=== PATIENT | male | born 1960 | race Caucasian/White ===

== ENCOUNTER 2016-10-02 08:03 | Inpatient (IN) | payer OTHER ==
[~2016-10-02] VITALS: Ht 167.6 cm; Wt 90.7 kg
[2016-10-02 08:06] VITALS: BP 167/105
--- NOTE | 2016-10-02 08:10 | NUR ---
56/M BIB C/O VOMITING AND ABDOMINAL PAIN SINCE LAST NOC. HX HTN, HYPERLIPIDEMIA, GOUT. SKIN IS PINK/WARM/DRY; AAOX4 WITH EVEN AND STEADY GAIT; LUNGS CLEAR BL; HR EVEN AND REGULAR; PT DENIES ANY FEVER, CP, SOB, OR COUGH AT THIS TIME; PATIENT STATES PAIN OF 10/10 AT THIS TIME; VSS; PATIENT POSITIONED FOR COMFORT; HOB ELEVATED; BEDRAILS UP X2; BED DOWN. ER MD MADE AWARE OF PT STATUS.
--- NOTE | 2016-10-02 08:15 | NUR ---
ER MD DR NAIK EVALUATING PT AT BEDSIDE.
[2016-10-02] MEDS ORDERED: NACL 0.9% 1,000 ML IV SCH (08:19)
[2016-10-02] MEDS ORDERED: MORPHINE SULFATE 4 MG/ML SYR IVP ONE ×2 (08:20→10:40)
[2016-10-02] MEDS ORDERED: ONDANSETRON 4 MG/2 ML VIAL IVP ONE (08:20)
--- NOTE | 2016-10-02 08:45 | NUR ---
X RAY AT BEDSIDE
[2016-10-02] MEDS ORDERED: DILT120C10 PO (08:56)
[2016-10-02] MEDS ORDERED: LOSA50TA39 PO (08:56)
[2016-10-02] MEDS ORDERED: METO25TE2 PO (08:56)
[2016-10-02] MEDS ORDERED: ATOR20TA PO (08:56)
[2016-10-02] MEDS ORDERED: KETO10TA2 PO (08:56)
--- NOTE | 2016-10-02 09:00 | NUR ---
Patient appears to be resting comfortably in bed. Vital Signs within normal limits. Respirations even and unlabored.WILL CONTINUE TO MONITOR
[2016-10-02 09:04] LABS: BASOPHILS # (AUTO) 0.1 K/uL (0.00-0.22); BASOPHILS % (AUTO) 1.1 % (0.0-2.0); EOSINOPHILS # (AUTO) 0.2 K/uL (0-0.4); HEMATOCRIT 47.5 % (36-52); HEMOGLOBIN 15.4 g/dL (12.0-18.0); LYMPHOCYTES # (AUTO) 0.4 K/uL (2.0-11.5); LYMPHOCYTES % (AUTO) 4.6 % (20.5-51.1); MEAN CORPUSCULAR HEMOGLOBIN 28 pg (27-31); MEAN CORPUSCULAR HGB CONC 33 g/dL (33-37); MEAN CORPUSCULAR VOLUME 87 fL (80-94); MONOCYTES # (AUTO) 0.3 K/uL (0.8-1.0); NEUTROPHILS # (AUTO) 8.4 K/uL (1.8-7.7); NEUTROPHILS % (AUTO) 89.3 % (42.2-75.2); PLATELET COUNT (AUTO) 194 K/uL (140-450); RED BLOOD CELL COUNT(AUTO) 5.46 MIL/uL (4.20-6.10); RED CELL DISTRIBUTION WIDTH 13.8 % (11.6-13.7)
[2016-10-02 09:14] LABS: ANION GAP 14.1 (8-16); CALCIUM 9.6 mg/dL (8.5-10.1); CARBON DIOXIDE 30.1 mmol/L (21-32); POTASSIUM 3.2 mmol/L (3.5-5.1)
[2016-10-02 09:17] LABS: WHITE BLOOD COUNT (AUTO) 9.4 K/uL (4.8-10.8)
[2016-10-02 09:19] LABS: ALBUMIN 4.5 g/dL (3.4-5.0); TOTAL PROTEIN, SERUM 8.3 g/dL (6.4-8.2)
--- NOTE | 2016-10-02 09:32 | NUR ---
Patient taken to CT scan via gurney by [facility].
--- NOTE | 2016-10-02 10:26 | NUR ---
Martina ford in ED - 10/02/16 at 1134 by MED1 PIT C/O ABD PAIN 02/07; BP 163/120; NO HEADACHE OR DIZZY; NOTIFIED ER MD DR NAIK. AWARE
--- NOTE | 2016-10-02 10:26 | NUR ---
PT C/O ABD PAIN 02/07; BP 163/120; NO HEADACHE OR DIZZY; NOTIFIED ER MD DR NAIK. AWARE
[2016-10-02] MEDS ORDERED: ASPIRIN 325 MG TAB PO ONE (10:40)
[2016-10-02] MEDS ORDERED: NACL 0.9% 1,000 ML IV ONE (10:40)
[2016-10-02 10:44] LABS: APPEARANCE,URINE SL CLOUDY (CLEAR); BILIRUBIN,URINE NEGATIVE (NEGATIVE); BLOOD, URINE 2+ (NEGATIVE); COLOR,URINE YELLOW (YELLOW); LEUKOCYTE ESTERASE ,URINE NEGATIVE (NEGATIVE); NITRITE, URINE NEGATIVE (NEGATIVE); PROTEIN,URINE 1+ (NEGATIVE); UGLUCOSE NEGATIVE (NEGATIVE); UROBILINOGEN,URINE 0.2 EU/dL (0.2 - 1)
--- NOTE | 2016-10-02 10:44 | NUR ---
Dr. Cardenas evaluating patient at bedside.
[2016-10-02 10:56] LABS: BACTERIA,URINE 1+ /HPF (None Seen); RBC,URINE 11-20 (MOD) /HPF (0-5); SQUAMOUS EPITHELIAL CELL,UR None Seen /LPF (0-3 (FEW)); WBC,URINE 0-5 (RARE) /HPF (0-5)
[2016-10-02] MEDS ORDERED: ONDANSETRON 4 MG/2 ML VIAL IM/IVP PRN (11:10)
[2016-10-02] MEDS ORDERED: HYDROcodone/APAP 7.5/325 MG 1 TAB PO PRN (11:10)
[2016-10-02] MEDS ORDERED: ACETAMINOPHEN 325 MG TAB PO PRN (11:10)
[2016-10-02] MEDS ORDERED: DOCUSATE SODIUM 100 MG GELCAP PO PRN (11:10)
[2016-10-02] MEDS ORDERED: MORPHINE SULFATE 2 MG/ML SYR IVP PRN (11:10)
--- NOTE | 2016-10-02 11:33 | NUR ---
CALLED TO GIVE REPORT TO MARTHA TAVERAS; RN STATED TO CALL HER BACK IN 5 MINS.
[2016-10-02 11:39] LABS: INR 1.1 (0.8-1.2); PARTIAL THROMBOPLASTIN TIME 24.8 secs (22-35.6); PROTHROMBIN TIME 10.4 secs (10.8-13.4)
[2016-10-02] MEDS: NACL 0.9% 1,000 ML IV SCH ×2 (11:41→12:47)
[2016-10-02 11:51] LABS: CHOL/HDL RATIO 4.4 (1-4.5); FREE T4 (FREE THYROXINE) 0.84 ng/dL (0.76-1.46); MAGNESIUM 2.1 mg/dL (1.8-2.4); PHOSPHORUS 2.1 mg/dL (2.5-4.9); THYROID STIMULATING HORMONE 0.65 uIU/mL (0.34-3.76)
--- NOTE | 2016-10-02 12:05 | NUR ---
RECEIVED PATIENT FROM ER, RECEIVED REPORT FROM GLORY RN, PT AWAKE AND ALERT, NO SIGNS OF ACUTE DISTRESS. BREATHING EVEN AND UNLABORED BILATERALLY ON ROOM AIR. NG TUBE IN RT NARE ON LOW INTERMITTENT SUCTION, BOWEL SOUNDS ACTIVE IN ALL 4 QUADRANTS WITH BOWEL AND BLADDER CONTINENCE, PATIENT C/O PAIN 2/10 IN ABDOMEN HOWEVER JUST RECEIVED MORPHINE IN ER AND DOES NOT WANT PAIN MEDICATION AT THIS TIME, AMBULATORY WITH BRP, SKIN INTACT, ORIENTED PATIENT TO HOSPITAL AND TO UNIT, PT VERBALIZED UNDERSTANDING, BED IN LOW POSITION WITH BILATERAL HALF SIDE RAILS UP, CALL LIGHT WITHIN REACH.
--- NOTE | 2016-10-02 12:10 | NUR ---
PT VOMITED APPROXIMATELY 50ML, BROWN-YELLOW IN COLOR.
--- NOTE | 2016-10-02 12:13 | NUR ---
PATIENT TRANSPORTED TO ROOM VIA GURNEY IN STABLE CONDITION WITH ALL BELONGINGS ACCOMPANIED BY STAFF AND FAMILY.
--- NOTE | 2016-10-02 12:30 | NUR ---
NOTIFIED DR GIORDANO OF PATIENT VOMITING, NO NEW ORDERS AT THIS TIME, WILL CONTINUE TO MONITOR.
[2016-10-02] MEDS ORDERED: POTASSIUM CHLORIDE 20 MEQ, LIDOCAINE 1% 25 MG in NACL 0.9% 250 ML IV ONE (13:10)
[2016-10-02] MEDS ORDERED: DILTIAZEM 120 MG CAPER PO SCH ×2 (13:15→15:05)
[2016-10-02] MEDS ORDERED: METOPROLOL SUCCINATE 50 MG TABER PO SCH ×2 (13:15→15:05)
[2016-10-02] MEDS ORDERED: LOSARTAN 50 MG TAB PO SCH ×2 (13:15→15:05)
[2016-10-02] MEDS ORDERED: SODIUM PHOS / POTASSIUM PHOS 1 PKT PDR PO SCH ×2 (13:15→15:05)
[2016-10-02 16:00] VITALS: BP 184/100
--- NOTE | 2016-10-02 16:31 | NUR ---
PT SEEN BY DR HOOPER, ORDERED XR SMALL BOWEL FOLLOW THROUGH. NOTED, WILL CARRY OUT.
--- NOTE | 2016-10-02 16:52 | NUR ---
PT BLOOD PRESSURE 184/100, SPOKE WITH DR CROOK, WILL RECEIVE NEW BLOOD PRESSURE MEDICATION IV INSTEAD OF PO ALONG WITH PRN FOR ATIVAN PATIENT IS AGITATED, NOTED, WILL CARRY OUT.
[2016-10-02] MEDS ORDERED: FUROSEMIDE 40 MG/4 ML VIAL IVP SCH (16:55)
--- NOTE | 2016-10-02 16:55 | NUR ---
RECEIVED NEW ORDER TO CHANGE FROM NPO EXCEPT MEDS TO NPO, NOTED, WILL CARRY OUT.
[2016-10-02] MEDS: LORazepam 2 MG/ML VIAL IVP PRN ×2 (17:27→21:59)
--- NOTE | 2016-10-02 17:55 | NUR ---
PT AWAKE AND ALERT, NO SIGNS OF ACUTE DISTRESS. TAKEN TO RADIOLOGY FOR XR SMALL BOWEL SERIES.
--- NOTE | 2016-10-02 19:30 | NUR ---
RECEIVED REPORT FROM DAY RN, PATIENT NOT ON UNIT, IN RADIOLOGY AT THIS TIME, WILL WAIT FOR PATIENT ARRIVAL .
--- NOTE | 2016-10-02 19:34 | NUR ---
PT STILL IN RADIOLOGY FOR XR SMALL BOWEL, ENDORSED PT TO SUPERVISOR MAINTENANCE NURSE FOR CONTINUITY OF CARE.
[2016-10-02 20:00] VITALS: BP 183/102
--- NOTE | 2016-10-02 20:25 | NUR ---
PATIENT BACK ON UNIT FROM RADIOLOGY, PATIENT IN STABLE CONDITION, PATIENT AAOX4 ON ROOM AIR, NO SOB OR SIGN OF DISTRESS AT THIS TIME, PATIENT HAS NG TUBE TO RIGHT NARE, SKIN INTACT, PATIENT DENIES PAIN AT THIS TIME , IV TO LEFT AC PATENT AT INTACT, BP ELEVATED TO 183/102, WILL ADMINISTER BP MEDICATION PER MD ORDER, PATIENT DENIES CHEST PAIN, CALL LIGHT WITHIN REACH. WILL CONTINUE TO MONITOR. FAMILY AT BEDSIDE.
[2016-10-02] MEDS: METOPROLOL 5 MG/5 ML VIAL IV SCH (20:41)
--- NOTE | 2016-10-02 20:50 | NUR ---
ADMINISTERED BP MEDICATION PER MD ORDER, HELD PO MEDS PER MD ORDER, CALL LIGHT WITHIN REACH. WILL CONTINUE TO MONITOR.
[2016-10-02] MEDS ORDERED: ATORVASTATIN 20 MG TAB PO SCH (21:00)
--- NOTE | 2016-10-02 22:30 | NUR ---
PATIENT RESTING IN BED, NO SIGN OF DISTRESS, CALL LIGHT WITHIN REACH. WILL CONTINUE TO MONITOR.
[2016-10-03] VITALS (7 sets, daily range): BP systolic 148–175; BP diastolic 79–99
--- NOTE | 2016-10-03 00:15 | NUR ---
PATIENT SLEEPING, NO SOB OR SIGN OF DISTRESS, CALL LIGHT WITHIN REACH. WILL CONTINUE TO MONITOR
--- NOTE | 2016-10-03 02:30 | NUR ---
PATIENT SLEEPING, NO SIGN OF DISTRESS, CALL LIGHT WITHIN REACH. WILL CONTINUE TO MONITOR.
--- NOTE | 2016-10-03 04:10 | NUR ---
VITAL SIGNS STABLE, NO SOB OR SIGN OF DISTRESS, CALL LIGHT WITHIN REACH. PATIENT AMBULATED UP TO RESTROOM, DENIES ABDOMINAL PAIN, CONNECTED BACK TO LOW INTERMITTENT SUCTION, WILL CONTINUE TO MONITOR
--- NOTE | 2016-10-03 07:32 | NUR ---
ENDORSED PATIENT TO DAY RN AT BEDSIDE, PATIENT IN STABLE CONDITION, NG TUBE TO LOW INTERMITTENT SUCTION WITH BROWNISH DRAINAGE.
--- NOTE | 2016-10-03 07:33 | NUR ---
PT AWAKE AND ALERT, NO SIGNS OF ACUTE DISTRESS. BREATHING EVEN AND UNLABORED BILATERALLY. NASOGASTRIC TUBE IN PLACE IN RIGHT NARE ON LOW INTERMITTENT SUCTION. BOWEL SOUNDS ACTIVE IN ALL 4 QUADRANTS, FLATUS PRESENT, NO DISTENTION. BOWEL AND BLADDER CONTINENCE. AMBULATORY WITH BRP. SKIN INTACT. IV PATENT WITH NO REDNESS OR SWELLING AROUND INSERTION SITE. NO COMPLAINT OF PAIN OR NAUSEA AT THIS TIME. BED IN LOW POSITION WITH BILATERAL HALF SIDE RAILS UP. CALL LIGHT WITHIN REACH. REORIENTED PATIENT TO HOSPITAL AND UNIT, PT VERBALIZED UNDERSTANDING.
[2016-10-03] MEDS: NACL 0.9% 1,000 ML IV SCH (08:21)
[2016-10-03] MEDS: METOPROLOL 5 MG/5 ML VIAL IV SCH ×3 (08:45→17:55)
[2016-10-03] MEDS: hydrALAZINE 20 MG/ML VIAL IVP PRN ×2 (08:45→11:52)
--- NOTE | 2016-10-03 08:54 | NUR ---
PATIENT HAS BEEN SCREENED AND CATEGORIZED MODERATE NUTRITION RISK. PATIENT WILL BE SEEN WITHIN 3-5 DAYS OF ADMISSION. 10/04/16-10/06/[address]
[2016-10-03] MEDS ORDERED: PANTOPRAZOLE 40 MG INJ VIAL IVP SCH ×2 (09:00→21:00)
[2016-10-03] MEDS ORDERED: ASPIRIN 325 MG TABEC PO SCH (09:00)
[2016-10-03] MEDS ORDERED: DOCUSATE SODIUM 100 MG GELCAP PO SCH (09:00)
[2016-10-03 09:13] LABS: T4 (THYROXINE) 6.9 ug/dL (4.5-12.0)
--- NOTE | 2016-10-03 09:26 | NUR ---
RECEIVED NEW ORDERS FROM , NOTED, WILL CARRY OUT.
[2016-10-03] MEDS ORDERED: ECOTRIN 81 MG TABEC PO SCH (11:13)
--- NOTE | 2016-10-03 11:30 | NUR ---
SPOKE TO DR RIOS REGARDING PT BLOOD PRESSURE LEVEL OF 175/99 TWO HOURS AFTER PRN HYDRALAZINE. PER DR RIOS ONE TIME DOSE OF HYDRALAZINE AND CHANGED SCHEDULED METOPROLOL TO TID, NOTED, WILL CARRY OUT.
--- NOTE | 2016-10-03 11:37 | NUR ---
RECEIVED CALL FROM MAE FROM [facility]. SHE SAID THAT THEY ARE PROBABLY GOING TO TRANSFER THIS PATIENT TO CONTRACTED HOSP[facility]. I GAVE HER THE PHONE NUMBER TO THE RESIDENT FOR DOCTOR TO DOCTOR REPORT. SHE SAID TO FAX REVIEW TO [phone] PHONE [phone]
[2016-10-03] MEDS: LORazepam 2 MG/ML VIAL IVP PRN (11:52)
[2016-10-03] MEDS: hydrALAZINE 20 MG/ML VIAL IVP SCH ×2 (11:54→14:54)
--- NOTE | 2016-10-03 12:45 | NUR ---
RE-ASSESSED BLOOD PRESSURE 159/93. GAVE SCHEDULED METOPROLOL. WILL RE-ASSESS AND CONTINUE TO MONITOR.
--- NOTE | 2016-10-03 14:15 | NUR ---
RECEIVED NEW ORDERS FROM DR HOOPER TO D/C NG TUBE AND BEGIN FULL LIQUID DIET, NOTED, WILL CARRY OUT.
[2016-10-03] MEDS ORDERED: ASPI81TA28 PO (14:25)
--- NOTE | 2016-10-03 14:31 | NUR ---
RECEIVED NEW ORDERS FOR DISCHARGE, NOTED. SPOKE WITH MD ABOUT BLOOD PRESSURE RE-ASSESSMENT OF 182/101, PER MD GIVE PRN APRESOLINE AT 1445 AND REASSESS. WILL CARRY OUT.
[2016-10-03] MEDS ORDERED: METO1SOL22 IV (15:10)
[2016-10-03] MEDS ORDERED: PANT40PD7 IVP (15:10)
--- NOTE | 2016-10-03 15:53 | NUR ---
RECEIVED CALL FROM MAE AT [facility], . PATIENT TO BE TRANSFERED TO [facility] IN [place] ON [facility]. APPRAISAL SPECIALIST BY [facility] AT 6P.M. PATIENT WILL GO TO ROOM 317B UNDER . CALL REPORT TO [phone]. RADHA THOMASQUALITY ASSURANCE ASSESSOR NURSE AWARE.
[2016-10-03] MEDS ORDERED: ENALAPRILAT 2.5 MG/2 ML VIAL IVP SCH (16:14)
--- NOTE | 2016-10-03 17:32 | NUR ---
RECEIVED NEW ORDERS FOR TRANSFER TO [facility]. PT TO GO VIA AMBULANCE WILL BE PICKED UP AT 1800. NOTED, WILL CARRY OUT.
--- NOTE | 2016-10-03 17:46 | NUR ---
CALLED [facility] AND GAVE REPORT TO JUAN THOMAS, FOR CONTINUITY OF CARE. PT. TO BE PICKED UP VIA AMBULANCE AT 1800.
[2016-10-03 18:39] LABS: HEMOGLOBIN A1C 5.7 % (4.8-5.6)
--- NOTE | 2016-10-03 18:48 | NUR ---
PT AWAKE AND ALERT, NO SIGNS OF ACUTE DISTRESS. GAVE REPORT TO AMBULANCE. EDUCATED PATIENT REGARDING DISCHARGE INSTRUCTIONS, SIGNS AND SYMPTOMS OF INFECTION AND WORSENING CONDITION, PT VERBALIZED UNDERSTANDING. CUT OFF WRIST BANDS, TOOK OFF TELE MONITOR. PT LEFT VIA AMBULANCE TO [facility] [place].
== END 2016-10-03 18:48 | disposition short-term general hospital (02) | DRG 388 ==
LOC: MED 08:03 → MTU 11:07
PROVIDERS: ADMIT Family Medicine; ATTEND Family Medicine
PROC: 0D9670Z Drainage of Stomach with Drainage Device, Via Natural or Artificial Opening (ICD-10-PCS; principal; 2016-10-02)
DX: K56.60 Unspecified intestinal obstruction (principal); N17.0 Acute kidney failure with tubular necrosis; I24.9 Acute ischemic heart disease, unspecified; I16.0 Hypertensive urgency; M10.9 Gout, unspecified; E83.39 Other disorders of phosphorus metabolism; E87.6 Hypokalemia; K21.9 Gastro-esophageal reflux disease without esophagitis; I10 Essential (primary) hypertension; N40.0 Benign prostatic hyperplasia without lower urinary tract symptoms; Z79.899 Other long term (current) drug therapy; Z82.49 Family history of ischemic heart disease and other diseases of the circulatory system; Z84.89 Family history of other specified conditions
CPT/HCPCS: 36415; 71010; 74250; 80053; 81001; 82150; 82550; 82553; 82948; 83036; 83690; 83735; 83880; 84100; 84436; 84439; 84443; 84479; 84484; 85025; 85610; 85730; 87086; 93005; 96361; 96374; 96375; 96376; 99285; C9113; J0360; J1940; J2001; J2060; J2270; J2405; J3480; J3490; J7030; Q0092; Q9967

== ENCOUNTER 2017-06-12 01:10 | Emergency (ER) | payer SELFPAY ==
[~2017-06-12] VITALS: Ht 160 cm; Wt 135.2 kg
[~2017-06-12 01:10] MED LIST: ASPI-1173 PO; ATOR20TA PO; DILT120C13 PO; KETO10TA2 PO; LOSA50TA39 PO; METO1SOL22 IV; METO25TE2 PO; PANT40PD7 IVP
[2017-06-12 01:20] VITALS: BP 161/90
--- NOTE | 2017-06-12 01:27 | NUR ---
PT TAKEN TO BED 1
--- NOTE | 2017-06-12 01:33 | NUR ---
56 Y/O M W/C/O R SHOULDER PAIN S/P FALLING X 10 DAYS AGO. PT STATES HE HAS TAKEN NAPROXEN 800 MG PRN FOR PAIN BUT HASNT HELP MUCH. NO OTHER S/S OF DISTRESS NOTED. ER MADE AWARE.
--- NOTE | 2017-06-12 01:43 | NUR ---
X-RAY AT BEDSIDE.
[2017-06-12] MEDS: KETOROLAC 30 MG/ML VIAL IM ONE (02:39)
[2017-06-12 02:56] VITALS: BP 142/83
== END 2017-06-12 02:56 | disposition home or self-care (01) ==
LOC: MED 01:10
DX: S42.91XA Fracture of right shoulder girdle, part unspecified, initial encounter for closed fracture (principal); I10 Essential (primary) hypertension; Z79.899 Other long term (current) drug therapy; Z79.82 Long term (current) use of aspirin; W06.XXXA Fall from bed, initial encounter; Y93.89 Activity, other specified; Y92.89 Other specified places as the place of occurrence of the external cause; Y99.8 Other external cause status
CPT/HCPCS: 29105; 73030; 96372; 99284; J1885; Q0092